=== PATIENT | female | born 1965 | race Caucasian/White ===

== ENCOUNTER 2016-08-10 13:51 | Emergency (ER) | payer MEDICARE, OTHER ==
--- NOTE | ~2016-08-10 | CR172 ---
[facility] A Service of [facility] & [facility] RADIOLOGY TEXT RESULTS PATIENT: MARIA LUZ RAMIREZ LOCATION: CFTX : 65 UNIT #: [id number] AGE: [address]: Rose Centeno APRN SEX: F ORDER DR: [id number] [facility] [address] [place], [place] [address] [id number] E MR#: [id number] Acc #: [id number] NAME: MARIA LUZ RAMIREZ. : 1965 SEX: F STUDY DATE/TIME: 08/10/2016 14:58 UNIT: [facility] ROOM: STUDY DESCRIPTION: CR Knee 3 Views Lt Attending Physician: Rose Centeno A.P.R.N. Ordering Physician: Clayton Ramirez M.D. MEDICAL IMAGING REPORT This report is preliminary unless electronic signature is present EXAM Left knee series 08/10/2016 HISTORY Pain and swelling. FINDINGS AP, lateral, sunrise views left knee presented. No traumatic fracture or malalignment. Joint space is intact. No acute appearing soft tissue abnormality. No joint effusion. Dictated by... Gera Mcdermott M.D. THIS IS AN ELECTRONICALLY VERIFIED REPORT Gera Mcdermott M.D. at 08/12/2016 11:31 AM REGAN/genie TD: 08/10/2016 23:26 JOB #: [id number] MEDICAL IMAGING REPORT Page 1 of 1 COPY
[~2016-08-10 13:51] MED LIST: ACTOS; ACTOS30 MG PO; ALBUTEROL20 ml INH; ALLEGRA; ALLERGY RELIEF25 MG PO; AMBIEN10 MG PO; AMITIZA24 MCG PO; ARTIFICIAL TEAR15 M3 OD; ASPIR-TRIN325 MG PO; ASPIRIN81 M1 PO; BACTRIM DS TABL1 TA1 PO; BAYER ASPIRIN325 M1 PO; BENADRYL25 MG PO; BROMFED DM COU118 ML PO; CELEXA20 MG PO; CIPRO PO; CLONAZEPAM0.5 MG PO; COMPAZINE10 M1 PO; COMPAZINE10 M2 PO; CORTISPORIN-TC10 ML OT; CRESTOR PO; DICLOFENAC PO; DIFLUCAN PO; FAMOTIDINE; FLEXERIL PO; FLEXERIL10 MG PO; HUMALOG100 U/M2 SUBQ; HUMALOG100 U/ML SUBQ; HUMULIN 70/30 V10 ML SQ; HUMULIN N VIAL INJ; HYDROMET SYRUP480 ML PO; IBUPROFEN PO; INDERAL40 MG PO; INVOKANA100 MG PO; JANUMET 50-1,1 UDTAB PO; JANUVIA100 MG PO; JANUVIA25 MG PO; K-DUR20 ME1 PO; KEFLEX PO; KLONOPIN1 MG PO; LASIX20 MG PO; LEVAQUIN PO; LEVEMIR SQ; LEVEMIR SUBQ; LEVEMIR100 U/ML SQ; LIPITOR; LOPID600 MG PO; LORTAB 7.5-5001 TAB PO; LOSARTAN-HCTZ1 EAC1 PO; LOVAZA1 G PO; MACROBID100 MG PO; METRONIDAZOLE PO; MEVACOR PO; MONTELUKAST SOD10 MG PO; NAPROSYN500 MG PO; NATEGLINIDE120 MG PO; NIASPAN PO; NIASPAN1000 MG PO; NORCO 7.5/325 T1 TAB PO; NORCO1 TAB 10/3 PO; NOVOLIN 70/30 V10 ML INJ; NOVOLIN N100 U/ML SUBQ; NOVOLIN R100 U/ML INJ; NOVOLIN R100 U/ML SUBQ; NOVOLOG100 U/M3 SQ; OMEPRAZOLE20 M2 PO; OSENI 25-30 MG1 EACH PO; PERCOCET5/325 PO; PHENERGAN; PHENERGAN PO; PHENERGAN25 M1 PO; PIOGLITAZONE30 MG PO; PREDNISONE PO; PREVACID; PREVACID PO; PRILOSEC PO; PRILOSEC20 M1 PO; PRILOSEC20 MG PO; PROPANOLOL; PROPRANOLOL HCL40 MG PO; PROPRANOLOL HCL80 M1 PO; PROPRANOLOL PO; SINGULAIR PO; TIZANIDINE HCL4 M1 PO; TOPAMAX PO; TOPAMAX25 MG PO; TRICOR; TRICOR PO; TRICOR145 MG PO; ULTRAM PO; VICODIN 5/500 T1 TAB; VICODIN 5/500 T1 TAB PO; VICTOZA0.6 MG/0.1 SQ; VICTOZA0.6 MG/0.1 SUBQ; VITAMIN D50000 UNIT IV/IM; VITAMIN D50000 UNIT PO; VOLTAREN75 MG PO; ZANAFLEX4 M1 PO; ZOFRAN ODT4 MG PO; ZOLPIDEM TARTRA10 MG PO; ZOVIRAX800 MG PO; ZYRTEC10 M2 PO; [UNRECOGNIZED DRUG - OTHER]; [UNRECOGNIZED DRUG - OTHER] SUBQ; [UNRECOGNIZED DRUG - REMARK]
== END 2016-08-10 15:55 | disposition home or self-care (01) ==
LOC: CFTX 13:51 → CED 13:51 → CFTX 15:17
DX: S80.02XA Contusion of left knee, initial encounter (principal); E11.65 Type 2 diabetes mellitus with hyperglycemia; Z79.4 Long term (current) use of insulin; W10.9XXA Fall (on) (from) unspecified stairs and steps, initial encounter; Y92.009 Unspecified place in unspecified non-institutional (private) residence as the place of occurrence of the external cause; Z88.0 Allergy status to penicillin; Z88.1 Allergy status to other antibiotic agents; Z88.8 Allergy status to other drugs, medicaments and biological substances
CPT/HCPCS: 73562; 82947; 99283

== ENCOUNTER 2016-11-20 22:07 | Emergency (ER) | payer MEDICARE, OTHER ==
[~2016-11-20] VITALS: Ht 170.2 cm; Wt 113.8 kg
--- NOTE | ~2016-11-20 | CR94 ---
[facility]. [facility] A Service of [facility] & [facility] RADIOLOGY TEXT RESULTS PATIENT: MARIA LUZ RAMIREZ LOCATION: SED : 65 UNIT #: [id number] AGE: [address]: Mary Rucker MD SEX: F ORDER DR: [id number] [place] [id number] E MR#: [id number] Acc #: [id number] NAME: MARIA LUZ RAMIREZ : 1965 SEX: F STUDY DATE/TIME: 11/21/2016 00:21 UNIT: SED ROOM: STUDY DESCRIPTION: CR Elbow Min 3 Views Rt Attending Physician: Mary Rucker M.D. Ordering Physician: Mary Rucker M.D. Primary Care Physician: No Primary Care Physician MEDICAL IMAGING REPORT This report is preliminary unless electronic signature is present. EXAM Right elbow, 11/21 0021. INDICATIONS Elbow pain after a fall down steps 2 hours ago tonight. FINDINGS AP and lateral examination of the elbow shows satisfactory articulation of the humerus with the proximal radius and ulna. There is no identifiable fracture, dislocation, joint effusion, or radiopaque foreign body in the soft tissues. IMPRESSION Normal elbow. Dictated by... Nba An Jr., M.D. THIS IS AN ELECTRONICALLY VERIFIED REPORT Nba An Jr., M.D. at 11/22/2016 1:53 AM PETER/nya TD: 11/21/2016 11:36 JOB #: [id number] MEDICAL IMAGING REPORT Page 1 of 1
--- NOTE | ~2016-11-20 | CR230 ---
[facility]. [facility] A Service of [facility] & [facility] RADIOLOGY TEXT RESULTS PATIENT: MARIA LUZ RAMIREZ LOCATION: SED : 65 UNIT #: [id number] AGE: [address]: Mary Rucker MD SEX: F ORDER DR: [id number] [place] [id number] E MR#: [id number] Acc #: [id number] NAME: MARIA LUZ RAMIREZ : 1965 SEX: F STUDY DATE/TIME: 11/21/2016 00:21 UNIT: SED ROOM: STUDY DESCRIPTION: CR Shoulder Min 2 View Rt Attending Physician: Mary Rucker M.D. Ordering Physician: Mary Rucker M.D. Primary Care Physician: No Primary Care Physician MEDICAL IMAGING REPORT This report is preliminary unless electronic signature is present. EXAM Right shoulder 11/21 at 00:21. INDICATIONS Shoulder pain after falling down steps 2 hours ago tonight. FINDINGS 3 views of the right shoulder were obtained. There is no fracture or dislocation. There is no AC joint separation. IMPRESSION Negative right shoulder. Dictated by... Nba An Jr., M.D. THIS IS AN ELECTRONICALLY VERIFIED REPORT Nba An Jr., M.D. at 11/22/2016 1:53 AM PETER/fide TD: 11/21/2016 12:01 JOB #: [id number] MEDICAL IMAGING REPORT Page 1 of 1
--- NOTE | ~2016-11-20 | CT52 ---
[facility] A Service [facility] RADIOLOGY TEXT RESULTS PATIENT: MARIA LUZ RAMIREZ LOCATION: SED : 65 UNIT #: [id number] AGE: [address]: Mary Rucker MD SEX: F ORDER DR: [id number] [place] [id number] E MR#: [id number] Acc #: [id number] NAME: MARIA LUZ RAMIREZ. : 1965 SEX: F STUDY DATE/TIME: 11/21/2016 00:20 UNIT: SED ROOM: STUDY DESCRIPTION: CT Cervical Spine Wo Cont Attending Physician: Mary Rucker M.D. Ordering Physician: Mary Rucker M.D. Primary Care Physician: No Primary Care Physician MEDICAL IMAGING REPORT This report is preliminary unless electronic signature is present. EXAM C-spine CT 11/21 at 00:20. INDICATIONS Fell down steps tonight 2 hours ago. Neck pain. TECHNIQUE Axial images were obtained through the cervical spine without contrast. Multiplanar reformats were obtained. This CT exam was performed with one or more of the following radiation dose reduction techniques: automatic exposure control, adjustment of mA and/or kV according to patient size, and iterative reconstruction. COMPARISON No comparison. FINDINGS No fracture or subluxation is identified. There is mild degenerative disc disease with anterior osteophyte formation at C5-6. No significant disc bulging or herniation is seen. There is no convincing evidence of central canal or foraminal stenosis. IMPRESSION Minimal degenerative disease. No acute fracture or malalignment. Dictated by... Nba An Jr., M.D. THIS IS AN ELECTRONICALLY VERIFIED REPORT Nba An Jr., M.D. at 11/22/2016 1:53 AM RLK/gz [facility] A Service [facility] RADIOLOGY TEXT RESULTS PATIENT: MARIA LUZ RAMIREZ LOCATION: SED : 65 UNIT #: [id number] AGE: [address]: Mary Rucker MD SEX: F ORDER DR: TD: 11/21/2016 11:49 JOB #: [id number] MEDICAL IMAGING REPORT Page 1 of 1
--- NOTE | ~2016-11-20 | CR142 ---
[facility]. [facility] A Service of [facility] & [facility] RADIOLOGY TEXT RESULTS PATIENT: MARIA LUZ RAMIREZ LOCATION: SED : 65 UNIT #: [id number] AGE: [address]: Mary Rucker MD SEX: F ORDER DR: [id number] [place] [id number] E MR#: [id number] Acc #: [id number] NAME: MARIA LUZ RAMIREZ. : 1965 SEX: F STUDY DATE/TIME: 11/21/2016 00:21 UNIT: SED ROOM: STUDY DESCRIPTION: CR Hand Min 3 Views Rt Attending Physician: Mary Rucker M.D. Ordering Physician: Mary Rucker M.D. Primary Care Physician: No Primary Care Physician MEDICAL IMAGING REPORT This report is preliminary unless electronic signature is present. EXAM Right hand 11/21 at 00:21. INDICATIONS Hand pain after falling down steps 2 hours ago tonight. FINDINGS AP, lateral, and oblique projections of the right hand show good mineralization with normal carpal, metacarpal, and phalangeal anatomy without indication of fracture, dislocation, or soft tissue radiopaque foreign body. IMPRESSION Normal right hand. Dictated by... Nba An Jr., M.D. THIS IS AN ELECTRONICALLY VERIFIED REPORT Nba An Jr., M.D. at 11/22/2016 1:53 AM RLK/fide TD: 11/21/2016 12:03 JOB #: [id number] MEDICAL IMAGING REPORT Page 1 of 1
--- NOTE | ~2016-11-20 | CR181 ---
[facility]. [facility] A Service of [facility] & [facility] RADIOLOGY TEXT RESULTS PATIENT: MARIA LUZ RAMIREZ LOCATION: SED : 65 UNIT #: [id number] AGE: [address]: Mary Rucker MD SEX: F ORDER DR: [id number] [place] [id number] E MR#: [id number] Acc #: [id number] NAME: MARIA LUZ RAMIREZ : 1965 SEX: F STUDY DATE/TIME: 11/21/2016 00:21 UNIT: SED ROOM: STUDY DESCRIPTION: CR Lumbar Spine 2 or 3 Views Attending Physician: Mary Rucker M.D. Ordering Physician: Mary Rucker M.D. Primary Care Physician: No Primary Care Physician MEDICAL IMAGING REPORT This report is preliminary unless electronic signature is present. EXAM Lumbar spine 11/21 at 00:21. INDICATIONS Low back pain after fall down steps 2 hours ago tonight. FINDINGS 3 views of the lumbar spine were obtained. Exam is slightly motion degraded. However, no fracture or subluxation is seen. There is degenerative disc disease at L3-4. IMPRESSION Slightly motion degraded exam. Degenerative disease at L3-4. No fracture or subluxation. Dictated by... Nba An Jr., M.D. THIS IS AN ELECTRONICALLY VERIFIED REPORT Nba An Jr., M.D. at 11/22/2016 1:53 AM PETER/fide TD: 11/21/2016 12:00 JOB #: [id number] MEDICAL IMAGING REPORT Page 1 of 1
--- NOTE | ~2016-11-20 | CR282 ---
[facility]. [facility] A Service of [facility] & [facility] RADIOLOGY TEXT RESULTS PATIENT: MARIA LUZ RAMIREZ LOCATION: SED : 65 UNIT #: [id number] AGE: [address]: Mary Rucker MD SEX: F ORDER DR: [id number] [place] [id number] E MR#: [id number] Acc #: [id number] NAME: MARIA LUZ RAMIREZ. : 1965 SEX: F STUDY DATE/TIME: 11/21/2016 00:21 UNIT: SED ROOM: STUDY DESCRIPTION: CR Wrist Min 3 View Rt Attending Physician: Mary Rucker M.D. Ordering Physician: Mary Rucker M.D. Primary Care Physician: No Primary Care Physician MEDICAL IMAGING REPORT This report is preliminary unless electronic signature is present. EXAM Right wrist 11/21 at 00:21. INDICATIONS Wrist pain after fall down steps tonight 2 hours ago. FINDINGS Right wrist evaluation in multiple projections shows normal mineralization of the bony structures about the wrist and satisfactory articular relationship of the radius and ulna to the proximal carpal row and of the distal carpal segments to the metacarpal bases. There is no indication of fracture or dislocation, and no soft tissue radiopaque foreign body is present. No congenital defects are apparent. IMPRESSION Normal right wrist. Dictated by... Nba An Jr., M.D. THIS IS AN ELECTRONICALLY VERIFIED REPORT Nba An Jr., M.D. at 11/22/2016 1:53 AM PETER/fide TD: 11/21/2016 11:58 JOB #: [id number] MEDICAL IMAGING REPORT Page 1 of 1
--- NOTE | ~2016-11-20 | CR170 ---
[facility]. [facility] A Service of [facility] & [facility] RADIOLOGY TEXT RESULTS PATIENT: MARIA LUZ RAMIREZ LOCATION: SED : 65 UNIT #: [id number] AGE: [address]: Mary Rucker MD SEX: F ORDER DR: [id number] [place] [id number] E MR#: [id number] Acc #: [id number] NAME: MARIA LUZ RAMIREZ : 1965 SEX: F STUDY DATE/TIME: 11/21/2016 00:21 UNIT: SED ROOM: STUDY DESCRIPTION: CR Knee 2 Views Rt Attending Physician: Mary Rucker M.D. Ordering Physician: Mary Rucker M.D. Primary Care Physician: No Primary Care Physician MEDICAL IMAGING REPORT This report is preliminary unless electronic signature is present. EXAM Right knee, 11/21 0021. INDICATIONS Knee pain after fall down steps 2 hours ago tonight. FINDINGS Two views of the right knee were obtained. There is no fracture or malalignment. There is some mild patellofemoral osteoarthritis. There is no joint effusion. IMPRESSION Mild patellofemoral osteoarthritis. No acute findings in the knee. Dictated by... Nba An Jr., M.D. THIS IS AN ELECTRONICALLY VERIFIED REPORT Nba An Jr., M.D. at 11/22/2016 1:53 AM PETER/nya TD: 11/21/2016 11:39 JOB #: [id number] MEDICAL IMAGING REPORT Page 1 of 1
--- NOTE | ~2016-11-20 | CR63 ---
[facility]. [facility] A Service of [facility] & [facility] RADIOLOGY TEXT RESULTS PATIENT: MARIA LUZ RAMIREZ LOCATION: SED : 65 UNIT #: [id number] AGE: [address]: Mary Rucker MD SEX: F ORDER DR: [id number] [place] [id number] E MR#: [id number] Acc #: [id number] NAME: MARIA LUZ RAMIREZ. : 1965 SEX: F STUDY DATE/TIME: 11/21/2016 00:21 UNIT: SED ROOM: STUDY DESCRIPTION: CR Chest 2 View Attending Physician: Mary Rucker M.D. Ordering Physician: Mary Rucker M.D. Primary Care Physician: No Primary Care Physician MEDICAL IMAGING REPORT This report is preliminary unless electronic signature is present. EXAM Chest x-ray 11/21 at 000:21. INDICATIONS Chest pain after fall down steps 2 hours ago tonight. COMPARISON 09/16/2014. FINDINGS PA and lateral examination of the chest upright shows a good expansion of the parenchyma with a normal distribution of the pulmonary vascularity. There is no indication of congestion, effusion, infiltrate, tumor, or nodular density. The pleural reflections and diaphragmatic contours are normal. The cardiac silhouette and mediastinal anatomy is within normal limits. IMPRESSION Normal chest. Dictated by... Nba An Jr., M.D. THIS IS AN ELECTRONICALLY VERIFIED REPORT Nba An Jr., M.D. at 11/22/2016 1:53 AM PETER/fide TD: 11/21/2016 12:04 JOB #: [id number] MEDICAL IMAGING REPORT Page 1 of 1
== END 2016-11-21 01:45 | disposition home or self-care (01) ==
LOC: SED 22:07
DX: S46.911A Strain of unspecified muscle, fascia and tendon at shoulder and upper arm level, right arm, initial encounter (principal); S10.93XA Contusion of unspecified part of neck, initial encounter; S20.229A Contusion of unspecified back wall of thorax, initial encounter; S30.0XXA Contusion of lower back and pelvis, initial encounter; S50.01XA Contusion of right elbow, initial encounter; E11.9 Type 2 diabetes mellitus without complications; I10 Essential (primary) hypertension; Z88.0 Allergy status to penicillin; K21.9 Gastro-esophageal reflux disease without esophagitis; W10.9XXA Fall (on) (from) unspecified stairs and steps, initial encounter; Y92.009 Unspecified place in unspecified non-institutional (private) residence as the place of occurrence of the external cause
CPT/HCPCS: 71020; 72100; 72125; 73030; 73080; 73110; 73130; 73560; 99284